=== PATIENT | male | born 1980 | race Caucasian/White ===

== ENCOUNTER 2019-11-08 15:47 | Emergency (ER) | payer MEDICAID ==
[~2019-11-08] VITALS: Ht 167.6 cm; Wt 74.8 kg
[2019-11-08 15:57] VITALS: Ht 167.6 cm; Wt 74.8 kg
[2019-11-08 17:55] VITALS: BP 129/83
== END 2019-11-08 17:55 | disposition home or self-care (01) ==
LOC: ED 15:47
DX: S92.025A Nondisplaced fracture of anterior process of left calcaneus, initial encounter for closed fracture (principal); S93.402A Sprain of unspecified ligament of left ankle, initial encounter; Z88.2 Allergy status to sulfonamides; Z86.2 Personal history of diseases of the blood and blood-forming organs and certain disorders involving the immune mechanism; Z88.8 Allergy status to other drugs, medicaments and biological substances; W01.0XXA Fall on same level from slipping, tripping and stumbling without subsequent striking against object, initial encounter; Y93.89 Activity, other specified; Y92.89 Other specified places as the place of occurrence of the external cause; Y99.8 Other external cause status
CPT/HCPCS: Q0092

== ENCOUNTER 2019-11-16 14:15 | Emergency (ER) | payer MEDICAID ==
[~2019-11-16] VITALS: Ht 193 cm; Wt 86.2 kg
[2019-11-16 14:23] VITALS: Ht 193 cm; Wt 86.2 kg
[2019-11-16 16:59] LABS: BASOPHIL % 0.3 % (0-2); PLATELET COUNT 282 x10^3mcL (130-400); RED CELL DISTRIBUTION WIDTH 14.1 % (11.5-14.5)
[2019-11-16 17:18] LABS: CALCIUM 8.5 mg/dL (8.5-10.1); CARBON DIOXIDE 11.3 mmol/L (21-32); CHLORIDE SERUM 104 mmol/L (98-107); GFR1 > 60 mL/min; GLUCOSE SERUM 98 mg/dL (74-106); POTASSIUM SERUM 4.3 mmol/L (3.5-5.1); SODIUM SERUM 138 mmol/L (136-145)
[2019-11-16 17:23] LABS: ALBUMIN 3.4 g/dL (3.4-5.0); ALKALINE PHOSPHATASE 104 U/L (46-116); ALT/SGPT 50 U/L (16-63); AST/SGOT 24 U/L (15-37); BILIRUBIN TOTAL 0.15 mg/dL (0.20-1.00)
[2019-11-16 18:41] LABS: microscopic required? NO
[2019-11-16 18:52] LABS: UA SPECIFIC GRAVITY 1.025 (1.005-1.035); urine erythrocyte NEGATIVE (NEGATIVE)
[2019-11-16 19:07] LABS: AMPHETAMINE QUAL UR NONE DETECTED (See below)
[2019-11-17 19:28] VITALS: BP 126/82
== END 2019-11-17 19:25 | disposition home or self-care (01) ==
LOC: ED 14:15
PROVIDERS: Emergency Medicine
DX: F25.1 Schizoaffective disorder, depressive type (principal); F43.10 Post-traumatic stress disorder, unspecified; F17.200 Nicotine dependence, unspecified, uncomplicated; Z20.828 Contact with and (suspected) exposure to other viral communicable diseases; Z88.0 Allergy status to penicillin; Z88.2 Allergy status to sulfonamides; X58.XXXA Exposure to other specified factors, initial encounter; Y92.89 Other specified places as the place of occurrence of the external cause; Y93.89 Activity, other specified; Y99.8 Other external cause status
CPT/HCPCS: 99406; G0480; Q0092; U0003-CS

== ENCOUNTER 2019-11-20 19:30 | Emergency (ER) | payer MEDICAID ==
[~2019-11-20] VITALS: Ht 193 cm; Wt 86.2 kg
[2019-11-20 19:58] VITALS: Ht 193 cm; Wt 86.2 kg
[2019-11-20 22:48] VITALS: BP 126/69
== END 2019-11-20 22:48 | disposition home or self-care (01) ==
LOC: ED 19:30
DX: L02.214 Cutaneous abscess of groin (principal); Z88.0 Allergy status to penicillin; Z88.2 Allergy status to sulfonamides; Z88.8 Allergy status to other drugs, medicaments and biological substances